=== PATIENT | female | born 1945 | race Two or more races ===

== ENCOUNTER 2017-04-04 13:01 | Emergency (ER) | payer SELFPAY ==
[2017-04-04 13:13] VITALS: BP 131/70; PULSE 89; TEMP 98.4; BMI 31.6
[2017-04-04] MEDS ORDERED: ALBUTEROL SO4 2.5/IPRATROPIUM 0.5 INH SOL 3 ML VIAL.NEB. NEB PRN (13:53)
--- NOTE | 2017-04-04 14:02 | PDOC ---
Attending Attestation - Resident Resident Name: Hailey Wilson - ED Attending Attestation I have performed the following: I have examined & evaluated the patient, The case was reviewed & discussed with the resident, I agree w/resident's findings & plan, Exceptions are as noted - HPI HPI: 04/04/17 14:08 71y F hx of asthma (well controlled, typically triggered by cold weather), cad, htn, presenting with complaint of sob/wheezing. Pt states that she has been feeling sob for the past few weeks, with wheezing - she states she has the same sypmtoms typically when it is cold - she recently came [facility] from [facility] [place] and states she was fine there. She endorses a dry cough, denies any hemnoptysis, leg swelling, calf pain, fever/chills, nasal congestion, chest pain, abd pain. The patient states the symptoms are no different to when [place] the [place]. on exam the pt is wel lappearing in no distress pulm exam noted for mild diffuse wheezing, ?posible some diffuse rales abd exam soft nontender no le edema suspect asthma will ck xray will give a nebulizer vitals normal here 04/04/17 16:08 cxr neg pt feeling improved lungs clear will dc with albuterol pump and pmd fu return precutions were discussed - Physicial Exam PE: 04/05/17 08:00 see abobve - Medical Decision Making 04/05/17 08:00 see above
--- NOTE | 2017-04-04 14:33 | PDOC ---
History of Present Illness - General Chief Complaint: Asthma Stated Complaint: ASTHMA Time Seen by Provider: 04/04/17 13:31 - History of Present Illness Initial Comments: 04/04/17 14:20 71yo [place] F with a remote PMHx of Asthma, also CAD, HTN. She presents with 3 weeks of dry cough and wheezing. Cold weather primarily triggers her asthma. She has been living in [place] for a couple of years, without any asthma exacerbation. 3 weeks ago, she moved to [place], and she started to get asthma exacerbations. She did not have inhalers, and did not take any medications for it. Never smoker, no second hand or occupational exposure. Denies other triggers. She denies CP, SOB, fevers, chills, orthopnea, edema. Past History - Past Medical History Allergies/Adverse Reactions: Allergies Allergy/AdvReac Type Severity Reaction Status Date / Time No Known Allergies Allergy Verified 04/04/17 13:09 Home Medications: Ambulatory Orders Albuterol Sulfate Inhaler - [Ventolin HFA Inhaler -] 1 - 2 inh PO Q4H PRN #1 inhaler 04/04/17 Amlodipine Besylate [Norvasc -] 5 mg PO DAILY 04/04/17 Clopidogrel Bisulfate [Clopidogrel] 75 mg PO DAILY 04/04/17 Gabapentin 800 mg PO DAILY 04/04/17 Levothyroxine [Synthroid -] 50 mcg PO DAILY 04/04/17 Mirtazapine 30 mg PO DAILY 04/04/17 Temazepam [Restoril] 15 mg PO DAILY 04/04/17 Tramadol HCl [Ultram -] 50 mg PO ASDIR 04/04/17 COPD: No DVT: No Other medical history: ASTHMA - Immunization History Immunization Up to Date: Yes - Suicide/Smoking/Psychosocial Hx Smoking History: Never smoked Have you smoked in the past 12 months: No Information on smoking cessation initiated: No Hx Alcohol Use: No Drug/Substance Use Hx: No Substance Use Type: None *Physical Exam - Vital Signs Last Vital Signs Temp Pulse Resp BP Pulse Ox 98.4 F 89 16 131/70 99 04/04/17 13:10 04/04/17 13:10 04/04/17 13:10 04/04/17 13:10 04/04/17 13:10 - Physical Exam Comments: GEN: AAOx3, NAD, sitting comfortably in exam chair HEENT: PERRLA, EOMi, no JVD CV: S1, S2, 2/6 systolic murmur LUNG: Bilateral rales with end-expiratory wheezes diffusely ABD: Soft, NT, ND, normoactive BS MSK: NO edema, no erythema NEURO: CN 2-12 grossly intact Medical Decision Making - Medical Decision Making 04/04/17 14:50 71yo F with PMHx of Asthma who presents with a 3 week history of signs/symptoms consistent w/ a mild asthma exacerbation since relocating from [place] to [place]. Will order duoneb treatment for now. CXR to assess lung parenchyma. If patient does not improve w/ duoneb will consider IV steroids. 04/04/17 15:45 On re-examination, patient's breathing is much improved. Lungs are notable for decreased wheezing, improved aeration. Will defer steroids. CXR clear. Will prescribe Albuterol inhaler. Informed patient. *DC/Admit/Observation/Transfer Diagnosis at time of Disposition: Acute asthma exacerbation Qualifiers: Asthma severity: mild Asthma persistence: intermittent Qualified Code(s): J45.21 - Mild intermittent asthma with (acute) exacerbation - Discharge Dispostion Disposition: HOME Condition at time of disposition: Improved Admit: No - Prescriptions Prescriptions: Albuterol Sulfate Inhaler - [Ventolin HFA Inhaler -] 1 - 2 inh PO Q4H PRN #1 inhaler PRN Reason: Shortness Of Breath - Referrals Referrals: Byron Tapia MD [Staff Physician] - 1 week (If you need to followup with a Primary Doctor in [place], you can followup with the resident clinic at Dr. Tapia's office) - Patient Instructions Printed Discharge Instructions: DI for Asthma -- Adult Print Language: MALAY - Post Discharge Activity
== END 2017-04-04 15:58 | disposition home or self-care (01) ==
LOC: JER 13:01
PROC: 3E0F7GC Introduction of Other Therapeutic Substance into Respiratory Tract, Via Natural or Artificial Opening (ICD-10-PCS; principal; 2017-04-04)
DX: J45.21 Mild intermittent asthma with (acute) exacerbation (principal); I25.10 Atherosclerotic heart disease of native coronary artery without angina pectoris; I10 Essential (primary) hypertension
CPT/HCPCS: 71046-TC; 99282-25